=== PATIENT | male | born 1990 | race Caucasian/White ===

== ENCOUNTER 2020-06-30 19:26 | Emergency (ER) | payer OTHER ==
[~2020-06-30] VITALS: Ht 182.9 cm; Wt 81.7 kg
[2020-06-30] MEDS ORDERED: BUPRENORPHINE HC2 M1 (20:49)
[2020-06-30] MEDS ORDERED: ESCI10 (20:49)
[2020-06-30] MEDS ORDERED: QUET200 (20:49)
[2020-06-30] MEDS ORDERED: CEPH500 PO (22:13)
== END 2020-06-30 23:44 | disposition home or self-care (01) ==
LOC: ER 19:26
DX: L02.512 Cutaneous abscess of left hand (principal); L02.413 Cutaneous abscess of right upper limb; Z79.899 Other long term (current) drug therapy
CPT/HCPCS: 10061; 99283-25; A9270

== ENCOUNTER 2020-09-22 12:33 | Emergency (ER) | payer OTHER ==
[~2020-09-22] VITALS: Ht 182.9 cm; Wt 88.5 kg
[~2020-09-22 12:33] MED LIST: BUPRENORPHINE HC2 M1; CEPH500 PO; ESCI10; QUET200
[2020-09-22 12:54] LABS: Source, Urine Clean Catch
[2020-09-22 13:01] LABS: Appearance, Urine Clear (Clear); Bilirubin, Urine Neg (Neg); Blood, Urine Neg (Neg); Color, Urine Yellow (P-Yellow); Glucose Qualitative, Urine Neg (Neg); Ketones, Urine Neg (Neg); Leukocyte Esterase, Urine 1+ (Neg); Nitrite, Urine Neg (Neg); Protein, Urine Neg (Neg); Urobilinogen, Urine NORM (Normal)
[2020-09-22 13:09] LABS: BASOPHILS ABSOLUTE AUTO 0.04 K/mm3 (0.00-0.23); BASOPHILS PERCENT AUTO 1 % (0-2); EOSINOPHILS ABSOLUTE AUTO 0.07 K/mm3 (0.00-0.68); EOSINOPHILS PERCENT AUTO 1 % (0-6); Hematocrit 43.2 % (37.0-53.0); Hemoglobin 14.9 g/dL (13.5-17.5); IMMATURE GRAN ABSOLUTE AUTO 0.02 K/mm3 (0.00-0.10); IMMATURE GRAN PERCENT AUTO 0 % (0-1); LYMPHOCYTES ABSOLUTE AUTO 1.89 K/mm3 (0.84-5.20); LYMPHOCYTES PERCENT AUTO 29 % (21-46); MONOCYTES ABSOLUTE AUTO 0.56 K/mm3 (0.16-1.47); MONOCYTES PERCENT AUTO 9 % (4-13); Mean Corpuscular HGB 29.5 pg (26.0-34.0); Mean Corpuscular HGB Conc 34.5 g/dL (31.5-36.5); Mean Corpuscular Volume 86 fL (80-100); Mean Platelet Volume 10.3 fL (9.1-12.4); NEUTROPHILS ABSOLUTE AUTO 3.88 K/mm3 (1.96-9.15); NEUTROPHILS PERCENT AUTO 60 % (41-73); Platelet Count 230 K/mm3 (150-400); RDW Coefficient Variation 14.2 % (11.7-14.2); RDW Standard Deviation 44.1 fL (35.1-46.3); Red Blood Cell Count 5.05 M/mm3 (4.30-5.90); White Blood Cell Count 6.46 K/mm3 (4.00-11.30)
[2020-09-22 13:24] LABS: Alanine Aminotransfer (ALT/SGP 238 U/L (12-78); Albumin, Blood 4.1 g/dL (3.4-5.0); Albumin/Globulin Ratio 0.9 (0.8-1.8); Alk Phos 145 U/L (50-136); Anion Gap 7 mmol/L (6-16); Aspartate Aminotrans (AST/SGOT 123 U/L (12-37); Bilirubin, Total 0.4 mg/dL (0.1-1.0); Blood Urea Nitrogen 18 mg/dL (8-24); Bun/Creatinine Ratio 27.2 (12.0-20.0); CO2, Blood 24 mmol/L (21-32); Calcium, Blood 9.9 mg/dL (8.5-10.1); Chloride, Blood 106 mmol/L (98-108); Creatinine, Blood 0.66 mg/dL (0.60-1.20); Globulin, Blood 4.4 g/dL (2.2-4.0); Glomerular Filtration Rate >60 (60-); Glucose, Blood 108 mg/dL (70-99); Potassium, Blood 4.1 mmol/L (3.5-5.5); Sodium, Blood 137 mmol/L (136-145); Total Protein, Blood 8.5 g/dL (6.4-8.2)
[2020-09-22 13:50] LABS: Bacteria Few /hpf; Red Blood Cells, Urine 0-2 /hpf (0-2); Squamous Epithelial Cells Rare /hpf (Few)
[2020-09-22] MEDS ORDERED: AMOCLA875 PO (18:03)
[2020-09-22] MEDS ORDERED: METR500 PO (18:03)
[2020-09-22] MEDS ORDERED: DICY20 PO (18:03)
[2020-09-22] MEDS ORDERED: IMODIUM A-D2 M1 PO (18:13)
[2020-09-22 20:49] LABS: Adenovirus F 40/41 Not Detected (NOT DETECT); Astrovirus Not Detected (NOT DETECT); Campylobacter Sp Not Detected (NOT DETECT); Cryptosporidium Not Detected (NOT DETECT); Cyclospora Cayetanensis Not Detected (NOT DETECT); E. Coli O157 Not Detected (NOT DETECT); Entamoeba Histolytica Not Detected (NOT DETECT); Enteroaggregative E. coli-EAEC Not Detected (NOT DETECT); Enteropathogenic E. coli-EPEC Not Detected (NOT DETECT); Enterotoxigenic E. coli-ETEC Not Detected (NOT DETECT); Giardia Lamblia Not Detected (NOT DETECT); Norovirus GI/GII Not Detected (NOT DETECT); Plesiomonas Shigelloides Not Detected (NOT DETECT); Rotavirus A Not Detected (NOT DETECT); Salmonella Sp Not Detected (NOT DETECT); Sapovirus Not Detected (NOT DETECT); Shiga Toxin-prod E. coli-STEC Not Detected (NOT DETECT); Shigella/Enteroin E. coli-EIEC Not Detected (NOT DETECT); Vibrio Cholerae Not Detected (NOT DETECT); Vibrio Sp Not Detected (NOT DETECT); Yersinia Enterocolitica Not Detected (NOT DETECT)
== END 2020-09-22 18:28 | disposition home or self-care (01) ==
LOC: ER 12:33
PROVIDERS: Emergency Medicine; Physician Assistant
DX: A09 Infectious gastroenteritis and colitis, unspecified (principal); F17.200 Nicotine dependence, unspecified, uncomplicated; Z79.899 Other long term (current) drug therapy
CPT/HCPCS: 0097U; 36415; 74177; 80053; 81001; 83690; 85025; 96374-59; 96375; 99284-25; A9270; A9270-GY; J1885; J2405; J3010; J7030; Q9967

== ENCOUNTER 2021-08-10 11:29 | Inpatient (IN) | payer OTHER ==
[~2021-08-10] VITALS: Ht 182.9 cm; Wt 103.6 kg
[~2021-08-10 11:29] MED LIST changes: +AMOCLA875 PO; +DICY20 PO; +IMODIUM A-D2 M1 PO; +METR500 PO
[2021-08-10 13:39] LABS: BASOPHILS ABSOLUTE AUTO 0.03 K/mm3 (0.00-0.23); BASOPHILS PERCENT AUTO 0 % (0-2); EOSINOPHILS ABSOLUTE AUTO 0.03 K/mm3 (0.00-0.68); EOSINOPHILS PERCENT AUTO 0 % (0-6); Hemoglobin 10.2 g/dL (13.5-17.5); IMMATURE GRAN ABSOLUTE AUTO 0.03 K/mm3 (0.00-0.10); IMMATURE GRAN PERCENT AUTO 0 % (0-1); LYMPHOCYTES ABSOLUTE AUTO 1.53 K/mm3 (0.84-5.20); LYMPHOCYTES PERCENT AUTO 17 % (21-46); MONOCYTES ABSOLUTE AUTO 0.81 K/mm3 (0.16-1.47); MONOCYTES PERCENT AUTO 9 % (4-13); Mean Corpuscular HGB 28.3 pg (26.0-34.0); Mean Corpuscular Volume 83 fL (80-100); Mean Platelet Volume 10.3 fL (9.1-12.4); NEUTROPHILS ABSOLUTE AUTO 6.66 K/mm3 (1.96-9.15); NEUTROPHILS PERCENT AUTO 73 % (41-73); Platelet Count 209 K/mm3 (150-400); RDW Coefficient Variation 13.3 % (11.7-14.2); RDW Standard Deviation 41.1 fL (35.1-46.3); Red Blood Cell Count 3.61 M/mm3 (4.30-5.90); White Blood Cell Count 9.09 K/mm3 (4.00-11.30)
[2021-08-10 14:09] LABS: Alanine Aminotransfer (ALT/SGP 56 U/L (12-78); Albumin, Blood 2.9 g/dL (3.4-5.0); Albumin/Globulin Ratio 0.7 (0.8-1.8); Alk Phos 73 U/L (50-136); Anion Gap 6 mmol/L (6-16); Aspartate Aminotrans (AST/SGOT 59 U/L (12-37); Bilirubin, Total 0.6 mg/dL (0.1-1.0); Blood Urea Nitrogen 12 mg/dL (8-24); Bun/Creatinine Ratio 19.4 (12.0-20.0); CO2, Blood 27 mmol/L (21-32); Calcium, Blood 8.3 mg/dL (8.5-10.1); Chloride, Blood 104 mmol/L (98-108); Creatinine, Blood 0.62 mg/dL (0.60-1.20); Globulin, Blood 3.9 g/dL (2.2-4.0); Glomerular Filtration Rate >60 (60-); Glucose, Blood 95 mg/dL (70-99); Potassium, Blood 3.6 mmol/L (3.5-5.5); Sodium, Blood 137 mmol/L (136-145); Total Protein, Blood 6.8 g/dL (6.4-8.2)
[2021-08-10] MEDS ORDERED: ESCI20 PO (16:52)
[2021-08-10] MEDS ORDERED: QUET200 PO (16:52)
[2021-08-10] MEDS ORDERED: BUSP10 PO (16:53)
[2021-08-10] MEDS ORDERED: BUPR150ER PO (16:53)
[2021-08-11 04:16] LABS: BASOPHILS ABSOLUTE AUTO 0.03 K/mm3 (0.00-0.23); BASOPHILS PERCENT AUTO 0 % (0-2); EOSINOPHILS ABSOLUTE AUTO 0.09 K/mm3 (0.00-0.68); EOSINOPHILS PERCENT AUTO 1 % (0-6); Hematocrit 30.2 % (37.0-53.0); Hemoglobin 9.8 g/dL (13.5-17.5); IMMATURE GRAN ABSOLUTE AUTO 0.03 K/mm3 (0.00-0.10); IMMATURE GRAN PERCENT AUTO 0 % (0-1); LYMPHOCYTES ABSOLUTE AUTO 1.81 K/mm3 (0.84-5.20); LYMPHOCYTES PERCENT AUTO 25 % (21-46); MONOCYTES ABSOLUTE AUTO 0.68 K/mm3 (0.16-1.47); MONOCYTES PERCENT AUTO 9 % (4-13); Mean Corpuscular HGB 27.5 pg (26.0-34.0); Mean Corpuscular HGB Conc 32.5 g/dL (31.5-36.5); Mean Corpuscular Volume 85 fL (80-100); Mean Platelet Volume 10.3 fL (9.1-12.4); NEUTROPHILS ABSOLUTE AUTO 4.56 K/mm3 (1.96-9.15); NEUTROPHILS PERCENT AUTO 63 % (41-73); Platelet Count 199 K/mm3 (150-400); RDW Coefficient Variation 13.5 % (11.7-14.2); RDW Standard Deviation 42.1 fL (35.1-46.3); Red Blood Cell Count 3.56 M/mm3 (4.30-5.90)
[2021-08-11 04:42] LABS: Anion Gap 3 mmol/L (6-16); Blood Urea Nitrogen 11 mg/dL (8-24); Bun/Creatinine Ratio 18.7 (12.0-20.0); CO2, Blood 28 mmol/L (21-32); Calcium, Blood 7.7 mg/dL (8.5-10.1); Chloride, Blood 112 mmol/L (98-108); Creatinine, Blood 0.59 mg/dL (0.60-1.20); Glomerular Filtration Rate >60 (60-); Glucose, Blood 99 mg/dL (70-99); Potassium, Blood 3.6 mmol/L (3.5-5.5); Sodium, Blood 143 mmol/L (136-145)
--- NOTE | 2021-08-11 05:19 | NUR ---
SHIFT SUMMARY: REC'D PT FROM ER. REPORT GIVEN. PT AAOX4. VS WNL WITH NO SIGNS OF DISTRESS. PT COMPLAINS OF PAIN IN LEFT HAND. IV SALINE LOCK IN RIGHT HAND. STARTED ON NS TO KVO. INITIAL ASSESSMENT COMPLETED. DRESSES ON LEFT HAND C/D/I. TENDER TO TOUCH.PT MEDICATED PER EMAR, TOLERATED WELL. WILL CONTINUE TO MONITOR AND MAINTAIN ALL PRECAUTIONS.
[2021-08-11 07:28] LABS: U Amphetamine Screen DETECTED; U Barbituate Screen Not Detected; U Benzodiazapine Screen Not Detected; U Buprenorphine Screen Not Detected; U Cannabinoids Screen DETECTED; U Cocaine Screen Not Detected; U Methadone Screen DETECTED; U Methamphetamine Screen DETECTED; U Opiates Screen Not Detected; U Oxycodone Screen Not Detected; U Phencyclidine Screen Not Detected; U Propoxyphene Screen Not Detected
--- NOTE | 2021-08-11 07:59 | NUR ---
BLOOD CULTURE LAB CALLED WITH BLOOD CULTURE RESULTS. GRAM NEGATIVE COCCI IN CLUSTERS. VERBALLY REPORTED THIS TO DALLAS VILLALTA AT [facility].
--- NOTE | 2021-08-11 13:18 | NUR ---
PAIN/METHADONE PATIENT REPORTED PAIN INTOLERABLE 02/24. CALLED [facility] TO VERIFY METHADONE DOSE WITH RN. ADAPT RN STATED THAT PATIENT WAS DISCHARGED OF 08/09 BECAUSE HE NO-SHOWED AN APPT. HE WAS ON A METHADONE TAPER AND TODAY 08/11 DOSE WOULD HAVE BEEN 6 MG. THE HIGHEST METHADONE DOSE HE EVER GOT WAS 85 MG/DAY MOST RECENTLY ON 08/03. CALLED DR LOVE AND INFORMED OF THE ABOVE INFO. DR LOVE STATED HE WOULD DECREASE METHADONE TO 10 MG DAILY AND START IV DILAUDID 1 MG Q4 PRN PAIN. THIS RN INFORMED PATIENT OF THE PLAN AND HE WAS AGREEABLE.
[2021-08-11 17:33] LABS: Vancomycin, Trough 8.5 ug/mL (5.0-10.0)
--- NOTE | 2021-08-11 17:39 | NUR ---
SHIFT SUMMARY PATIENT ALERT AND ORIENTED THROUGHOUT SHIFT. LEFT FINGERS, HAND, AND WRIST SWOLLEN AND RED. DRESSING CHANGED THIS SHIFT. IV FLUIDS AND ABX RUNNING. MEDICATED FOR PAIN PER EMAR. INDEPENDENT IN ROOM. TOLERATING REGULAR DIET AND LIQUIDS. VOIDING WELL. PENDING BLOOD CULTURES.
--- NOTE | 2021-08-12 05:09 | NUR ---
SHIFT SUMMARY: PT IN BED AAOX4. VS WNL. PT APPREARS DROWSY. SPOKE IN FULL SENTENCES. COMPLAINED OF PAIN. MEDICATED PER EMAR ORDERED. COMPLAINED OF PAIN AT IV SITE FLUSH WITH 10 ML NS. PATENT. 2350. IV WITH RESISTANCE AND TENDERNESS AT SITE. D/C IV CATHETER INTACT. ICU NURSE INSERTED NEW IV IN RIGHT ARM PATENT. PT WITH EYES CLOSED RESTING. TOLERATED MEDICATIONS WELL. MONITORING AND MAINTAINING ALL PRECAUTIONS. PT REMAINS NPO AFTER MIDNIGHT.
--- NOTE | 2021-08-12 09:31 | NUR ---
IV ACCESS NO IV ACCESS INSERTION CHARTED, 18G TO ANASTACIO IN PLACE AT START OF SHIFT.
--- NOTE | 2021-08-12 16:57 | NUR ---
SHIFT SUMMARY A/P I&D IN ER, ORTHO EVALUATED L WRIST AND ELECTED TO CONTINUE ABX c POSSIBLE DISCHARGE TOMORROW, PAIN NOT VERY WELL MANAGED R/T CHRONIC CONDITIONS/METHADONE BUT IS TOLERABLE, TORADOL CHANGED TO SCHEDULED FOR ANTI INFLAMMATORY CONTRIBUTIONS, PT ABLE TO EAT AFTER SURGERY NOT DEEMED NEEDED TODAY AND TOLERATING DIET, ABX INFUSED, PT A/OX4 AND PLEASANT BUT WAS HAPPY TO HAVE VISITORS TODAY. NO ACUTE EVENTS THIS SHIFT, INDEPENDENT IN ROOM, CALL LIGHT IN REACH, WILL CTM AND REPORT TO BELKIS BURGESS.
[2021-08-12 18:07] LABS: Vancomycin, Trough 10.5 ug/mL (5.0-10.0)
--- NOTE | 2021-08-13 04:21 | NUR ---
SHIFT SUMMARY: PT SITTING UP IN CHAIR EATING DINNER.AAOX4. VS WNL WITH NO SIGNS OF DISTRESS NOTED. IV IN RIGHT AC INFUSING ORDERED TOLERATING WELL. PT COMPLAINS OF PAIN 02/24. MEDICATED PER EMAR. DRESSING ON LEFT HAND C/D/I. LIMITED ROM AND SWELLING IN LEFT HAND. PULSE OX IN PLACE. O2 SAT 94-97%. HR 43-67. WILL CONTINUE TO MONITOR AND MAINTAIN ALL PRECAUTIONS.
[2021-08-13 04:36] LABS: Hematocrit 31.1 % (37.0-53.0); Mean Corpuscular HGB 27.7 pg (26.0-34.0); Mean Corpuscular HGB Conc 32.2 g/dL (31.5-36.5); Mean Corpuscular Volume 86 fL (80-100); Mean Platelet Volume 10.6 fL (9.1-12.4); Platelet Count 260 K/mm3 (150-400); RDW Coefficient Variation 13.8 % (11.7-14.2); RDW Standard Deviation 43.4 fL (35.1-46.3); Red Blood Cell Count 3.61 M/mm3 (4.30-5.90); White Blood Cell Count 4.38 K/mm3 (4.00-11.30)
[2021-08-13 05:10] LABS: Alanine Aminotransfer (ALT/SGP 43 U/L (12-78); Albumin, Blood 2.4 g/dL (3.4-5.0); Albumin/Globulin Ratio 0.6 (0.8-1.8); Alk Phos 74 U/L (50-136); Anion Gap 5 mmol/L (6-16); Aspartate Aminotrans (AST/SGOT 24 U/L (12-37); Bilirubin, Total 0.2 mg/dL (0.1-1.0); Blood Urea Nitrogen 12 mg/dL (8-24); Bun/Creatinine Ratio 19.8 (12.0-20.0); CO2, Blood 26 mmol/L (21-32); Calcium, Blood 8.1 mg/dL (8.5-10.1); Chloride, Blood 111 mmol/L (98-108); Creatinine, Blood 0.61 mg/dL (0.60-1.20); Ferritin, Serum 66 ng/mL (26-388); Glomerular Filtration Rate >60 (60-); Glucose, Blood 116 mg/dL (70-99); Iron Serum 32 ug/dL (65-175); Magnesium, Blood 2.1 mg/dL (1.6-2.4); Percent Saturation 12.5 % (20.0-50.0); Potassium, Blood 3.8 mmol/L (3.5-5.5); Sodium, Blood 142 mmol/L (136-145); Total Iron Binding Capacity 257 ug/dL (250-450); Total Protein, Blood 6.4 g/dL (6.4-8.2)
[2021-08-13 18:34] LABS: Vancomycin, Trough 16.1 ug/mL (5.0-10.0)
--- NOTE | 2021-08-14 04:41 | NUR ---
SHIFT SUMMARY: PT IN BED SITTING UP AAOX4 FINISHING DINNER WITH NO SIGNS OF DISTRESS NOTED. VS WNL. IV IN LEFT ARM PATENT. DRESSING ON RIGHT HAND C/D/I. DECREASE ROM AND MILD SWELLING IN FINGERS. PT COMPLAINS OF PAIN 02/24. MEDICATED PER EMAR. TOLERATED WELL. EYES CLOSED RESTING WITH NO SIGNS OF DISTRESS NOTED. WILL CONTINUE TO MONITOR AND MAINTAIN ALL PRECAUTIONS. VOIDED WELL ON SHIFT. PULSE OX IN PLACE. O2 SAT 97-99%. HR 44-68.
--- NOTE | 2021-08-14 11:26 | NUR ---
DR. SALCEDO ROUNDED ON PT AND CHANGED DRESSING. PER DR. SALCEDO OK FOR DISCHARGE TODAY AND FOLLOW-UP ON SATURDAY. DR. GUSTAFSON NOTIFIED THAT DR. SALCEDO IS OK WITH PLAN FOR DISCHARGE. SHE VERBALIZED THAT SHE WILL PLACE DC ORDERS AND PROVIDE PT WITH A PRESCRIPTION FOR PAIN MEDICATION.
[2021-08-14] MEDS ORDERED: Cleocin HCl150 MG PO (13:04)
[2021-08-14] MEDS ORDERED: NAPR500EC PO (13:05)
[2021-08-14] MEDS ORDERED: Percocet 5-3251 EACH PO (13:07)
--- NOTE | 2021-08-14 13:50 | NUR ---
DISCHARGE PT AND GUEST PROVIDED WITH WRITTEN AND VERBAL DISCHARGE INSTRUCTIONS, THEY REPORTED UNDERSTANDING. CLEAN DRESSING SUPPLIES PROVIDED FOR 5 DAYS OF DRESSING CHANGES, ADEQUATE UNTIL FOLLOW UP WITH DR. SALCEDO ON SATURDAY. PT WAS EDUCATED TO CALL AND SCHEDULE HIS APPOINTMENT SOON POSSIBLE. PRESCRIPTIONS FAXED TO [facility] PER PT REQUEST, FAX CONFIRMATION SHEET RECEIVED. PT EXPRESSED SOME CONCERNS THAT HE WAS BEING DISCHARGED WITH PERCOCET INSTEAD OF METHADONE. PT STATES HE WAS WITHDRAWING PRIOR TO ARRIVING AT THE HOSPITAL BECAUSE HIS METHADONE PRESCRIPTION . PT WAS EDUCATED THAT HE WAS GIVEN METHADONE FOR PAIN MANAGMENT WHILE IN THE HOSPITAL, MEDICATION WAS NOT GIVEN FOR WITHDRAWAL, HE WAS EDUCATED TO FOLLOW-UP WITH PCP REGARDING METHADONE PRESCRIPTION. PT AND HIS GUEST REQUESTED THAT DR. GUSTAFSON BE CONTACTED REGARDING METHADONE FOR WITHDRAWAL MANAGEMENT. THEY CHANGED THEIR MIND PRIOR TO DISCHARGE, AND REPORTED THAT PRESCRIPTION FOR PERCOCET WOULD BE ADEQUATE FOR PAIN MANAGEMENT AND VERBALIZED UNDERSTANDING THAT METHADONE WAS NOT PRESCRIBED IN THE HOSPITAL FOR WITHDRAWAL BUT INSTEAD FOR PAIN MANAGEMENT.
== END 2021-08-14 13:47 | disposition home or self-care (01) | DRG 872 ==
LOC: ER 11:29 → SURS 16:57
PROVIDERS: Internal Medicine; Pharmacist; Physician Assistant; ADMIT Internal Medicine
PROC: 0J9H0ZZ Drainage of Left Lower Arm Subcutaneous Tissue and Fascia, Open Approach (ICD-10-PCS; principal; 2021-08-10)
PROC: 3E03329 Introduction of Other Anti-infective into Peripheral Vein, Percutaneous Approach (ICD-10-PCS; 2021-08-10)
DX: A41.02 Sepsis due to Methicillin resistant Staphylococcus aureus (principal); L03.113 Cellulitis of right upper limb; L02.414 Cutaneous abscess of left upper limb; F11.20 Opioid dependence, uncomplicated; B19.20 Unspecified viral hepatitis C without hepatic coma; F17.210 Nicotine dependence, cigarettes, uncomplicated; M65.9 Synovitis and tenosynovitis, unspecified; F15.10 Other stimulant abuse, uncomplicated; F32.A Depression, unspecified; D64.9 Anemia, unspecified; F12.10 Cannabis abuse, uncomplicated
CPT/HCPCS: 10061; 36415; 73201; 80048; 80053; 80202; 82728; 83540; 83550; 83605; 83735; 85025; 85027; 87040; 87070; 87075; 87077; 87147; 87186; 87205; 94762; 96374; 96375; 99285-25; A9270; J0692; J1170; J1650; J1885; J3370; J7030; J7050; Q9967

== ENCOUNTER 2021-08-30 04:22 | Emergency (ER) | payer OTHER ==
[~2021-08-30] VITALS: Ht 180.3 cm; Wt 90.7 kg
[~2021-08-30 04:22] MED LIST changes: +BUPR150ER PO; +BUSP10 PO; +Cleocin HCl150 MG PO; +ESCI20 PO; +NAPR500EC PO; +Percocet 5-3251 EACH PO; +QUET200 PO
== END 2021-08-30 06:48 | disposition home or self-care (01) ==
LOC: ER 04:22
DX: Z00.00 Encounter for general adult medical examination without abnormal findings (principal); F17.200 Nicotine dependence, unspecified, uncomplicated; Z79.899 Other long term (current) drug therapy
CPT/HCPCS: 93005; 93010; 99284-25

== ENCOUNTER 2021-12-10 18:31 | Emergency (ER) | payer OTHER ==
[~2021-12-10] VITALS: Ht 182.9 cm; Wt 68.0 kg
[2021-12-10 19:23] LABS: BASOPHILS ABSOLUTE AUTO 0.05 K/mm3 (0.00-0.23); BASOPHILS PERCENT AUTO 1 % (0-2); EOSINOPHILS ABSOLUTE AUTO 0.02 K/mm3 (0.00-0.68); EOSINOPHILS PERCENT AUTO 0 % (0-6); Hematocrit 42.3 % (37.0-53.0); Hemoglobin 14.2 g/dL (13.5-17.5); IMMATURE GRAN ABSOLUTE AUTO 0.02 K/mm3 (0.00-0.10); IMMATURE GRAN PERCENT AUTO 0 % (0-1); LYMPHOCYTES ABSOLUTE AUTO 5.31 K/mm3 (0.84-5.20); LYMPHOCYTES PERCENT AUTO 53 % (21-46); MONOCYTES ABSOLUTE AUTO 0.58 K/mm3 (0.16-1.47); MONOCYTES PERCENT AUTO 6 % (4-13); Mean Corpuscular HGB 27.2 pg (26.0-34.0); Mean Corpuscular HGB Conc 33.6 g/dL (31.5-36.5); Mean Corpuscular Volume 81 fL (80-100); Mean Platelet Volume 10.8 fL (9.1-12.4); NEUTROPHILS ABSOLUTE AUTO 4.09 K/mm3 (1.96-9.15); NEUTROPHILS PERCENT AUTO 41 % (41-73); Platelet Count 330 K/mm3 (150-400); RDW Coefficient Variation 14.1 % (11.7-14.2); RDW Standard Deviation 41.4 fL (35.1-46.3); Red Blood Cell Count 5.23 M/mm3 (4.30-5.90); White Blood Cell Count 10.07 K/mm3 (4.00-11.30)
[2021-12-10 19:49] LABS: Albumin, Blood 3.3 g/dL (3.4-5.0); Albumin/Globulin Ratio 0.7 (0.8-1.8); Bilirubin, Total 0.6 mg/dL (0.1-1.0); Creatinine, Blood 1.11 mg/dL (0.60-1.20); Globulin, Blood 4.5 g/dL (2.2-4.0); Magnesium, Blood 1.3 mg/dL (1.6-2.4); Potassium, Blood 3.6 mmol/L (3.5-5.5); Total Protein, Blood 7.8 g/dL (6.4-8.2)
[2021-12-10 20:39] LABS: Source, Urine Foley catheter
[2021-12-10 20:46] LABS: Bilirubin, Urine Neg (Neg); Blood, Urine 5+ (Neg); Glucose Qualitative, Urine 1+ (Neg); Ketones, Urine Neg (Neg); Leukocyte Esterase, Urine Neg (Neg); Nitrite, Urine Neg (Neg); Protein, Urine 4+ (Neg); Urobilinogen, Urine NORM (Normal)
[2021-12-10 20:49] LABS: Appearance, Urine Hazy (Clear); Color, Urine Yellow (P-Yellow)
[2021-12-10 20:55] LABS: Amorphous Heavy (0-Heavy); Bacteria Few /hpf; Mucus Light (0-Heavy); Squamous Epithelial Cells Few /hpf (Few); White Blood Cells, Urine 0-2 /hpf (0-5)
[2021-12-10 20:58] LABS: PCO2 Arterial 41.4 mmHg (35-45); PO2 Arterial 79.2 mmHg (80-100)
[2021-12-10 21:21] LABS: U Amphetamine Screen Not Detected; U Barbituate Screen Not Detected; U Benzodiazapine Screen Not Detected; U Buprenorphine Screen DETECTED; U Cannabinoids Screen DETECTED; U Cocaine Screen Not Detected; U Methadone Screen Not Detected; U Methamphetamine Screen DETECTED; U Opiates Screen Not Detected; U Oxycodone Screen Not Detected; U Phencyclidine Screen Not Detected; U Propoxyphene Screen Not Detected
== END 2021-12-11 01:00 | disposition short-term general hospital (02) ==
LOC: ER 18:31
PROVIDERS: Student in an Organized Health Care Education/Training Program
DX: J96.91 Respiratory failure, unspecified with hypoxia (principal); K92.2 Gastrointestinal hemorrhage, unspecified; R00.0 Tachycardia, unspecified; I95.9 Hypotension, unspecified; R77.8 Other specified abnormalities of plasma proteins; E87.2 Acidosis; F15.10 Other stimulant abuse, uncomplicated; R79.89 Other specified abnormal findings of blood chemistry; F17.200 Nicotine dependence, unspecified, uncomplicated; Z79.899 Other long term (current) drug therapy
CPT/HCPCS: 31500; 36415; 36600; 51702; 70450; 71045; 71260; 72125; 74177; 80053; 81001; 82803; 83605; 83690; 83735; 84484; 85018; 85025; 94002; A9270; G0480; J0696; J2250; J2310; J2370; J2704; J3010; J3475; J3490; J7030; J7120; P9016; Q9967